=== PATIENT | male | born 1965 | race Caucasian/White ===

== ENCOUNTER 2021-06-12 09:05 | Emergency (ER) | payer OTHER ==
[~2021-06-12] VITALS: Ht 182.9 cm; Wt 72.6 kg
[2021-06-12] MEDS ORDERED: HYDROCODON-ACE1 EA11 PO (14:25)
--- NOTE | 2021-06-14 11:27 | CONS ---
[facility] [address], [place] [address] Signed DATE OF CONSULTATION: 06/12/2021 REQUESTING PHYSICIAN: Dr. Love. PROBLEM: Rectus sheath hematoma, coincidental regional umbilical hernia. HISTORY OF PRESENT ILLNESS: This 55-year-old white man who works at the [employer] as a cook. He lives alone and lives in [place]. He admits to chronic alcohol use. He presented to the emergency room today to see Dr. Love with complaints of swelling in the region of the umbilicus and some ecchymotic change. He was noted by Dr. Love to have markedly tenderness in the region. The patient describes a "lump" in this area longstanding. His lab studies were obtained showing normal coagulation studies and CBC, which was normal with hematocrit of 45.5 and platelets of 218,000. Coag studies were normal including INR of 0.9 and PTT of 28.1. Urinalysis also normal. COVID serology was negative. A CT scan was obtained of the abdominal wall to assess for incarcerated hernia, which found instead a hernia in the region of the umbilicus with herniated fat, but also a significant rectus sheath hematoma mostly on the left side. I have reviewed those films in detail. The patient is uncertain just when any symptoms occurred. He has been sore for about one day at least. He denies any use of anticoagulants of any sort. As regard to trauma, he says that he did fall on his left side a few days ago, which caused a fair amount of pain. Review of his CT scan does not show any sign of rib fracture that I can feel. REVIEW OF SYSTEMS: He denies any shortness of breath or chest pain. Has no intraabdominal pain. His pain is restricted to the abdominal wall. PHYSICAL EXAMINATION: This is a thin white man who does not appear to be delirious in any way. Shows no evidence of alcohol withdrawal syndrome at this time. Trachea is midline. There is no crepitus. Electronically Signed By: JERE IBANEZ MD 06/14/21 1127 PATIENT NAME: LOWELL DELGADO CONSULTATION DATE OF : 61 REPORT #: [id number] PHYSICIAN: JERE IBANEZ MD PCP: NO PRIMARY CARE PHYSICIAN REPORT IS CONFIDENTIAL AND NOT TO BE RELEASED WITHOUT AUTHORIZATION [facility] [address], [place] [address] Signed CHEST: Shows normal respiratory excursion, pulses regular. ABDOMEN: Relatively flat. There is ecchymosis from the left of the umbilicus and a palpable rather tender mass consistent with rectus sheath hematoma and surrounding soft tissue edema. I cannot discern the actual hernia currently. LOWER EXTREMITIES: Show no petechiae. No clubbing, cyanosis, or edema. LAB STUDIES: Are as previously described. ASSESSMENT: The patient appears to have a rectus sheath hematoma not associated with known coagulopathy. His chronic alcoholism certainly does put him at risk of coagulopathy, but even more so, falls and other unappreciated trauma. He does describe a fall recently, which may well have caused disruption of a rectus sheath blood vessel. It appears that the hematoma is well organized and old. My review of the CT scan showed a radiodense finding in the base of the area, which was interpreted as a clip; however, I do not believe that is likely is more likely a blood vessel. He does not have a "blush" per se or signs of ongoing bleeding or expansion of the hematoma. In most such cases, exploration is not necessary. Aspiration hematoma causing an infection and certainly would not adequately drain it. Some amount of observation in the ER has been ongoing and we will confer with Dr. Love. If the patient has no sign of expanding hematoma, normal coagulation studies and so forth in most cases, the patients can be discharged outpatient, to follow up as needed should lack of resolution or advancement of symptoms occur. MD PATRICIA Lieberman/MODL /[id number] cc: Alvin Love MD Copies: ALVIN LOVE MD ~ Electronically Signed By: JERE IBANEZ MD 06/14/21 1127 PATIENT NAME: LOWELL DELGADO CONSULTATION DATE OF : 61 REPORT #: [id number] PHYSICIAN: JERE IBANEZ MD PCP: NO PRIMARY CARE PHYSICIAN REPORT IS CONFIDENTIAL AND NOT TO BE RELEASED WITHOUT AUTHORIZATION
== END 2021-06-12 15:13 | disposition home or self-care (01) ==
LOC: ED 09:05
DX: M79.81 Nontraumatic hematoma of soft tissue (principal); Z20.822 Contact with and (suspected) exposure to COVID-19
CPT/HCPCS: 74177; 80053; 81001; 83690; 85025; 85610; 85730; 96376; 99284-25; A9270; C9803; J1170; J7030; J7121; Q9967; U0003

== ENCOUNTER 2023-05-27 07:15 | Day surgery (SDC) | payer OTHER ==
[2023-05-24 08:11] VITALS: BP 134/87
[~2023-05-27] VITALS: Ht 182.9 cm; Wt 68.2 kg
--- NOTE | ~2023-05-27 | OR ---
[facility] [address], [place] [address] Draft DATE OF OPERATION: 05/27/2023 SURGEON: Jere Ibanez MD PREOPERATIVE DIAGNOSIS: Symptomatic (painful) epigastric hernia. POSTOPERATIVE DIAGNOSES: 1. Symptomatic (painful) epigastric hernia. 2. Fascial defect 2 cm or less. 3. Incarcerated properitoneal fat. PROCEDURE: Repair of incarcerated epigastric hernia less than 2 cm without implantation of mesh. ANESTHESIA: General endotracheal, Noah Vitale, IN [employer]IAN and local 10 mL of 0.25% Marcaine with epinephrine. INDICATION: This 57-year-old white man is a patient of Dr. Kwok at the [facility]. He was referred for consideration of hernia. He has had epigastric pain and CT scan was performed approximately two years ago in the emergency room with an associated abdominal wall hematoma, which showed a fascial defect and hernia at that time. His CT scans performed a year ago in March 2022 at the [place] describe a tiny defect in the upper midline 11 cm above the umbilicus. The defect was considered 2 mm containing only fat. He has had persistent epigastric pain in this area. Additional imaging shows a defect that is small, but with herniated properitoneal fat. On that basis, he is here for repair of the hernia. He understands the risk of bleeding, infection, recurrence, and other unforeseen complications. FINDINGS: In the area in question, a fascial defect was identified somewhat less than 2 cm in size. Herniated properitoneal fat was noted. This was reduced and repair consisted of reapproximation of the fascia transversely. He did not require implantation of mesh. DESCRIPTION OF PROCEDURE: The patient was brought to the operating room, given a general endotracheal anesthetic. Preoperative antibiotic Ancef was given. Sequential compression device stockings were used and heparin subcutaneously administered. The area in question had been marked PATIENT NAME: LOWELL DELGADO OPERATIVE REPORT DATE OF : 61 REPORT #: [id number] PHYSICIAN: JERE IBANEZ MD PCP: LUIS KWOK MD REPORT IS CONFIDENTIAL AND NOT TO BE RELEASED WITHOUT AUTHORIZATION [facility] [address], [place] [address] Draft previously by me in the preoperative area. The abdomen was clipped and prepared with a chlorhexidine solution and draped sterilely. The area designated as abnormal and with preoperative review of the CT scan showing the defect, a relatively small incision was made in the epigastric area. Dissection was carried through the subcutaneous tissue identifying the herniated properitoneal fat. It was definitely incarcerated and could not be reduced initially. The fascial defect was slightly enlarged allowing for reduction of the properitoneal fat. This area was then closely inspected and the defect was certainly less than 2 cm in aggregate. Primary reapproximation was deemed as most appropriate approach for repair. This was accomplished with interrupted 0 Prolene in a horizontal mattress configuration. 10 mL of 0.25% Marcaine with epinephrine was injected locally. Xavier layer was reapproximated with interrupted 2-0 Vicryl and skin closed with a running subcuticular 3-0 Vicryl. Steri-Strips were applied. The patient was ultimately extubated and transferred to the recovery room in good condition having suffered no complication. Sponge, needle and instrument count was reported as correct x3. MD PATRICIA Lieberman/MODL /[id number] cc: Dai SylvesterAsh[facility] Copies: ~ PATIENT NAME: LOWELL DELGADO OPERATIVE REPORT DATE OF : 61 REPORT #: [id number] PHYSICIAN: JERE IBANEZ MD PCP: LIUS KWOK MD REPORT IS CONFIDENTIAL AND NOT TO BE RELEASED WITHOUT AUTHORIZATION
[~2023-05-27 07:15] MED LIST: COZAAR50 MG PO; HYDROCODON-ACE1 EA11 PO
[2023-05-27 07:34] VITALS: BP 155/93
[2023-05-27] MEDS ORDERED: IBUPROFEN600 MG PO (09:54)
[2023-05-27] MEDS ORDERED: OXYCODON-ACETA1 EAC2 PO (09:54)
[2023-05-27] MEDS ORDERED: ACETAMINOPHEN500 MG PO (09:54)
[2023-05-27 10:07] VITALS: BP 141/73
--- NOTE | 2023-05-27 10:11 | NUR ---
05/27/23 1011 Charito Valdez 0944- PT ARRIVED TO PACU, ALERT AND ANSWERING ALL QUESTIONS. MONITORS APPLIED, PT ON ROOM AIR. DRESSING IN PLACE, CDI. PT EXTREMITIES VERY SHAKY, CAN'T RECALL IF NORMAL WITH PREVIOUS SURGERIES. CONTINUE TO MONITOR. 1000- VITAL SIGNS STABLE, PT REMAINS ALERT, NO CHANGE IN ASSESSMENT. SHAKING HAS RESOLVED AT THIS TIME. PT READY TO GO BACK TO DAY SURGERY.
--- NOTE | 2023-05-27 10:11 | NUR ---
PT ARRIVES TO DAY SURGERY ROOM #8 FROM PACU. PT REPORTS NO PAIN OR NAUSEA. RESP EVEN AND UNLABORED. OXYGEN SAT HIGH 90'S ON RA. PT PROVIDED WATER AND JELL-O PER HIS REQUEST. PT EDUCATED ON REQUIREMENTS FOR DC AND TIME FRAME. PT AGREEABLE TO THIS PLAN. BED IN THE LOWEST POSITION, BED RAIL UP X1, CALL LIGHT PROVIDED.
[2023-05-27 11:07] VITALS: BP 144/79
--- NOTE | 2023-05-27 11:09 | NUR ---
PT AMBULATED TO THE RESTROOM AND BACK TO BED. PT ABLE TO URINATE 250 ML OF CLEAR YELLOW URINE. PT REPORTS ABD PAIN A 1/10 AND DENIES WANTING ANYTHING FOR PAIN AT THIS TIME. DENIES NAUSEA. PT IS READY TO GO HOME. PT DRESSING HIMSELF DENIES ANY DIZZINESS OR NAUSEA.
--- NOTE | 2023-05-27 11:38 | NUR ---
PT IN GOOD SPIRITS. DENIED NEEDS. CONSENTED TO PRAYER. PRAYED FOR AWARENESS OF GOD'S PRESENCE AND SUCCESSFUL PROCEDURE.
--- NOTE | 2023-05-27 11:44 | NUR ---
1127- DC INSTRUCTIONS PROVIDED TO PT. ALL QUESTIONS ANSWERED. PT REPORTS PAIN A 1/10 AND DENIES WANTING ANYTHING FOR PAIN. DENIES NAUSEA. PT WAS ABLE TO DRESS HIMSELF WITHOUT DIZZINESS. 1137- PT AMBULATED TO THE WHEELCHAIR AND WAS TAKEN TO MEET HIS BROTHER IN LAW IN THE FRONT OF THE HOSPITAL. PT INTO PASSENGER SIDE OF VEHICLE.
== END 2023-05-27 11:37 | disposition home or self-care (01) ==
LOC: DS 07:15
PROVIDERS: ATTEND Surgery
PROC: 0WQF0ZZ Repair Abdominal Wall, Open Approach (ICD-10-PCS; principal; 2023-05-27 09:00)
DX: K43.6 Other and unspecified ventral hernia with obstruction, without gangrene (principal); K40.90 Unilateral inguinal hernia, without obstruction or gangrene, not specified as recurrent; Z98.890 Other specified postprocedural states
CPT/HCPCS: J0131; J0690; J1100; J1644; J1885; J2001; J2405; J2704; J3010; J7121

== ENCOUNTER 2024-04-12 12:07 | Emergency (ER) | payer OTHER ==
[~2024-04-12] VITALS: Ht 182.9 cm; Wt 71.1 kg
[~2024-04-12 12:07] MED LIST changes: +ACETAMINOPHEN500 MG PO; +IBUPROFEN600 MG PO; +OXYCODON-ACETA1 EAC2 PO
[2024-04-12 13:20] VITALS: BP 134/89
== END 2024-04-12 13:20 | disposition home or self-care (01) ==
LOC: ED 12:07
DX: D18.01 Hemangioma of skin and subcutaneous tissue (principal); I10 Essential (primary) hypertension; F17.200 Nicotine dependence, unspecified, uncomplicated
CPT/HCPCS: 99283